=== PATIENT | female | born 1995 | race Caucasian/White ===

== ENCOUNTER 2016-08-06 21:46 | Inpatient (IN) | payer OTHER ==
--- NOTE | ~2016-08-06 | HP ---
Unit #: [id number] #: [id number] Patient: KATHLEEN BURLESON [id number] [place] [address] [id number] MR#: [id number] NAME: KATHLEEN BURLESON ROOM: P180 Age: 21 Sex: F Admission Date: 08/06/2016 : 1995 Attending Physician: Darrius Sam M.D. Admitting Physician: Darrius Sam M.D. Primary Care Physician: Primary Care Physician No HISTORY AND PHYSICAL HISTORY OF PRESENT ILLNESS Kathleen is a 21-year-old admitted to [facility] because of her drug use. She snorts heroin, cocaine and abuses benzodiazepines. PAST MEDICAL HISTORY Long history of poly illicit substance abuse. PAST SURGICAL HISTORY Oral. ALLERGIES Penicillin SOCIAL HISTORY Smokes one pack per day. Drinks alcohol rarely. Admits to a long history of illicit substance abuse. FAMILY HISTORY Medically noncontributory. REVIEW OF SYSTEMS CONSTITUTIONAL: No fever or chills. HEENT: Denies any sore throat, ear pain or runny nose. CARDIOVASCULAR: Denies chest pain, irregular heart rhythm or palpitations. CHEST: Denies shortness of breath or cough. No hemoptysis. GASTROINTESTINAL: Denies nausea, vomiting, diarrhea or chronic constipation. ENDOCRINE: Denies history of increased thirst or urination. No recent significant weight loss or gain. GENITOURINARY: Denies dysuria, frequency, or hematuria. SKIN: Denies any rashes. HEMATOLOGIC: Denies history of increased bleeding or bruising. MUSCULOSKELETAL: Denies any hot, swollen joints. No generalized muscle pain. NEUROLOGIC: Denies problems with vision or speech. No frequent, severe headaches. No numbness, tingling or weakness in any extremities. Denies loss of bladder or bowel control. CURRENT MEDICATIONS Detox protocol PHYSICAL EXAMINATION GENERAL: Alert, well-nourished, no apparent distress. Unit #: [id number] #: [id number] Patient: KATHLEEN BURLESON VITAL SIGNS: Blood pressure 110/70, heart rate 80, respirations 16, temperature 98.6. WEIGHT: 125. HEIGHT: 5 feet 5 inches. SKIN: Warm and dry without rash or lesion. HEENT: Normocephalic. TMs not viewed. Oral and nasal passages clear. Conjunctivae clear. PERRLA. EOMs intact. NECK: Supple without lymphadenopathy or thyromegaly. HEART: Regular rate and rhythm without murmur. LUNGS: Clear. ABDOMEN: Soft, nontender. : Not done. EXTREMITIES: No evidence of cyanosis, clubbing or edema. Moves all without focal deficit. NEUROLOGICAL: Grossly within normal limits. Cranial Nerves: II: Visual zuleta are intact. III, IV AND : Extraocular movements are intact. Pupils are equal, round and reactive to light. V: Facial sensation is grossly normal. VII: Facial movements and expression are normal. VIII: Auditory acuity grossly intact. IX, X: Uvula is midline. Phonation is normal. XI: Patient shrugs shoulders and turns head normally. XII: Tongue protrudes in the midline. Sensory and Motor Function: Sensory and motor sensation is grossly normal. Motor: moves all extremities well. Coordination: Gait is normal. Deep Tendon Reflexes: Intact. MEDICAL ASSESSMENT AND PLAN Psychiatric admission RECOMMENDATIONS 1. Psychiatric, per psychiatrist. 2. Medical, I see no contraindications to participating in facility's activities. MEDICAL PROGNOSIS Good. MEDICAL CONDITION Stable. Dictated by... Hay Martinez/momo TD: 08/07/2016 20:07 JOB #: [id number] Unit #: [id number] #: [id number] Patient: KATHLEEN BURLESON HISTORY AND PHYSICAL Page 1 of 1 X Aysha Stevenson HISTORY AND PHYSICAL
--- NOTE | ~2016-08-06 | PA ---
Unit #: [id number] #: [id number] Patient: KATHLEEN BURLESON [id number] [place] [address] [id number] MR#: [id number] NAME: KATHLEEN BURLESON ROOM: P180 Age: 21 Sex: F Admission Date: 08/06/2016 : 1995 Date of Assessment: 08/07/2016 Attending Physician: Darrius Sam M.D. Admitting Physician: Darrius Sam M.D. Primary Care Physician: Primary Care Physician No PSYCHIATRIC ASSESSMENT DATE OF SERVICE 08/07/2016. INFORMANTS The patient, partially reliable and the patient's family, reliable. CHIEF COMPLAINT "I'm addicted to heroin." HISTORY OF PRESENT ILLNESS Kathleen is a 21-year-old woman, who reports that she and her fiance both use substances and that she is personally addicted to heroin. She has difficulty maintaining sobriety in the outpatient setting and was admitted for opioid detox. PAST PSYCHIATRIC HISTORY No previous inpatient psychiatric services. The patient does not currently take psychiatric medications. FAMILY PSYCHIATRIC HISTORY The patient has an uncle and aunt who abuse opioids and her father is an alcoholic. SOCIAL HISTORY The patient is a single heterosexual woman with a constant partner for about the past 4 years. 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 She is a high school graduate, who is currently unemployed and has been unable to maintain stable housing, erratically staying with family. PAST MEDICAL HISTORY No chronic medical problems. MEDICATIONS None currently. ALLERGIES Penicillin. SUBSTANCE USE HISTORY The patient has been abusing heroin on a 2 g a day basis. She intermittently uses alprazolam, cocaine, cannabis, and alcohol. Unit #: [id number] #: [id number] Patient: KATHLEEN BURLESON MENTAL STATUS EXAMINATION The patient presented as a mildly disheveled woman, who appeared older than her stated age. She stood 5 feet 5 inches tall and weighed 125 pounds. Vital signs; temperature 98.6, pulse 79, respirations 18, and blood pressure 131/77. Her speech was soft, sparse, and easily understood. Musculoskeletal examination was calm. Her mood was irritable with a congruent affect. She was alert and fully oriented. Her memory and concentration were fair to good. Her thought processes were logical with no psychosis and no suicidal ideation, intent, or plan. Insight and judgment, intact. Fund of knowledge and abstraction were intact. ASSETS AND LIABILITIES The patient is youthful and presents voluntarily for treatment. Liabilities include partner who uses, unstable housing, and unstable income. ADMITTING DIAGNOSES AXIS I: Opioid dependence with withdrawal, uncomplicated, F11.23. AXIS II: No diagnosis. AXIS III: Opioid withdrawal syndrome. AXIS IV: AXIS V: PSYCHIATRIC PLAN Luana was admitted and placed on the opioid detox protocol. Physical examination and laboratory studies will be ordered and reviewed and trazodone will be provided as needed for insomnia. TREATMENT GOALS Resolution of intoxication, improvement in insight, and improvement in coping skills. DISCHARGE PLANNING Follow up with [facility]. ESTIMATED LENGTH OF STAY 5 days. Dictated by... Darrius Sam M.D. ALESSIO/louisa TD: 08/07/2016 12:36 JOB #: [id number] Unit #: [id number] #: [id number] Patient: KATHLEEN BURLESON PSYCHIATRIC ASSESSMENT Page 1 of 1 X Darrius Sam MD X PSYCHIATRIC ASSESSMENT
--- NOTE | ~2016-08-06 | PN ---
Unit #: [id number] #: [id number] Patient: KATHLEEN BURLESON [id number] [facility] [address] [place] [address] [id number] I MR#: [id number] NAME: KATHLEEN BURLESON ROOM: P180 Age: 21 Sex: F Admission Date: 08/06/2016 : 1995 Attending Physician: Darrius Sam M.D. Admitting Physician: Darrius Sam M.D. Primary Care Physician: Primary Care Physician Tomeka SCHNEIDER PROGRESS NOTES DATE 08/08/2016 DISCUSSION Kathleen continues to complain of active detox symptoms and "judie-high anxiety." She also complains that her nicotine patch is insufficient. She appears to have a euthymic mood with a congruent affect and she is alert and fully oriented with no evidence of psychosis. ASSESSMENT Opiate dependence. PLAN I will add Flexeril to her detox plan and provide a temporary increase in her nicotine patch to 21 mg a day, provided it is removed in the evening and does not interfere with sleep. Dictated by... Boaz Varela/erica TD: 08/09/2016 05:40 JOB #: [id number] [facility] PROGRESS NOTES Page 1 of 1 X Darrius Sam MD PROGRESS NOTE
[~2016-08-06 21:46] MED LIST: ALBUTEROL17 G1 IH; ALBUTEROL17 GM INH; BIRTH CONTROL PILL; BIRTH CONTROL PILL PO; FLEXERIL10 MG PO; MEDROL4 MG/DOSE- PO; PERCOCET PO; ZITHROMAX1 G/PKT PO
[2016-08-07 09:31] LABS: BASOPHIL# 0.1 X10e3 (0-0.3); BASOPHIL% 0.8 % (0-2.5); EOSINOPHIL# 0.3 X10e3 (0-0.7); EOSINOPHIL% 3.4 % (0.0-7.0); HEMATOCRIT 38.7 % (35.0-45.0); HEMOGLOBIN 12.8 gm/dL (12.0-16.0); LYMPHOCYTE% 47.5 % (17.0-45.0); MEAN CELL VOLUME 89.9 FL (83-96); MEAN CORPUSCULAR HEMOGLOBIN 29.8 PG (28-34); MEAN CORPUSCULAR HGB CONC 33.1 g/dL (30-36); MONOCYTE# 0.7 X10e3 (0-1.0); MONOCYTE% 8.7 % (3.0-12.0); NEUTROPHIL# 3.3 X10e3 (1.5-7.1); NEUTROPHIL% 39.6 % (40-75); PLATELET COUNT 178 X10e3 (140-420); RED BLOOD COUNT 4.31 X10e (3.90-5.30); RED CELL DISTRIBUTION WIDTH 14.2 % (11.0-15.5); WHITE BLOOD COUNT 8.4 X10e3 (4.0-10.5)
[2016-08-07 09:35] LABS: DIFF IND NO
[2016-08-07 09:53] LABS: ALBUMIN SERUM 4.1 g/dL (3.5-5.0); BILIRUBIN,TOTAL 0.6 mg/dL (0.2-2.0); BUN/CREATININE RATIO 13.33; CALCIUM SERUM 9.5 mg/dL (8.4-10.2); CREATININE SERUM 0.6 mg/dL (0.6-1.4); GLOM FILT RATE Estimated 129.4 mL/min (>60); POTASSIUM 4.1 mmol/L (3.5-5.1); PROTEIN TOTAL SERUM 6.1 g/dL (6.0-8.3)
== END 2016-08-09 10:30 | disposition home or self-care (01) | DRG 897 ==
LOC: P1E 21:46
PROVIDERS: Psychiatry & Neurology Psychiatry
PROC: HZ2ZZZZ Detoxification Services for Substance Abuse Treatment (ICD-10-PCS; principal; 2016-08-06)
DX: F11.23 Opioid dependence with withdrawal (principal); F17.210 Nicotine dependence, cigarettes, uncomplicated; Z88.0 Allergy status to penicillin
CPT/HCPCS: 80053; 84703; 85025; 86592